=== PATIENT | female | born 1985 | race Caucasian/White ===

== ENCOUNTER 2018-08-06 09:49 | Inpatient (IN) | payer BC ==
--- NOTE | 2018-08-06 09:01 | PDOC.LDHP ---
Labor and Delivery H&P Chief complaint: scheduled section Current gestational age (weeks): 39 Due date: 08/13/18 Dating criteria: last menstrual period ( with first timester sono agreement.) Grav: 2 Para: 1 Current complications: other (PUPPPS--biopsy confirmed. 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) Abnormal US findings: No Current medications: pre- vitamins, iron Previous surgical history: low tranverse CS Allergies/Adverse Reactions: Allergies Allergy/AdvReac Type Severity Reaction Status Date / Time No Known Allergies Allergy Unverified 03/31/16 21:11 Social history: none - Physical Exam General: NAD, resting Heart: RRR Lungs: nonlabored breathing Abdomen: gravid FHT: category 1 - OB Labs Blood type: A RH: negative Antibody Screen: negative HIV: negative RPR: negative HEPSAg: negative 1 hour GCT: negative GBS: positive Urine drug screen: not done Rubella: immune - Assessment L&D Assessment: scheduled repeat section - Plan Plan: admit to L&D, to OR for section, anesthesia consult for pain management
[~2018-08-06 09:49] MED LIST: Bicitra 30 ML UDCUP PO SCH; CEFAZOLIN/Water 2 GM/20 ML SYRINGE SLOW IVP SCH; Ondansetron PF 4 MG/2 ML Vial IVP PRN; Promethazine HCl 25 MG/ML VIAL IM PRN
[2018-08-06] MEDS ORDERED: CEFAZOLIN 2 GM in Premix Bag 1 BAG IVPB SCH (10:00)
[2018-08-06] MEDS ORDERED: Meperidine HCl/PF 25 MG/ML VIAL SLOW IVP PRN (10:12)
[2018-08-06] MEDS ORDERED: diphenhydrAMINE 50 MG/ML VIAL IVP PRN (10:12)
[2018-08-06] MEDS ORDERED: Promethazine HCl 25 MG/ML VIAL IM PRN ×2 (10:12→12:50)
[2018-08-06] MEDS ORDERED: HYDROmorphone 2 MG/ML VIAL SLOW IVP PRN (10:12)
[2018-08-06] MEDS ORDERED: Naloxone HCl 0.4 mg/ml Vial IVP PRN ×2 (10:12)
[2018-08-06] MEDS ORDERED: Ondansetron HCl/PF 4 MG/2 ML Vial IVP PRN (10:12)
[2018-08-06] MEDS ORDERED: Promethazine HCl 25 MG SUPP PR PRN (10:12)
[2018-08-06] MEDS ORDERED: Naloxone HCl 0.4 mg/ml Vial IV PRN (10:12)
[2018-08-06] MEDS ORDERED: L&D-Morphine 4 MG/ML VIAL SLOW IVP PRN (10:12)
[2018-08-06] MEDS ORDERED: Eucerin (Mineral Oil/Petrolatum,White) 30 gm Jar TOP PRN (10:12)
[2018-08-06] MEDS ORDERED: Communication Order-Pharmacy FS SCH (10:15)
[2018-08-06] MEDS ORDERED: Ketorolac Tromethamine 30 MG/ML VIAL IVP SCH (10:15)
[2018-08-06] MEDS: Lactated Ringer's 1,000 ML IV SCH ×3 (10:34→16:41)
[2018-08-06 10:44] VITALS: BMI 25.1
[2018-08-06 10:56] LABS: Hemoglobin 10.5 g/dL (12.0-16.0); Mean Corpuscular Hemoglobin 24.5 pg (27.0-31.0); Mean Corpuscular Volume 76.6 fL (78.0-98.0); Mean Platelet Volume 8.3 fL (7.4-10.4); Platelet Count 287 thou/uL (130-400); RBC Distribution Width 17.6 % (11.5-14.5); Red Blood Cell (RBC) Count 4.28 mill/uL (4.20-5.40); White Blood Cell (WBC) Count 6.9 thou/uL (4.8-10.8)
[2018-08-06] MEDS ORDERED: ePHEDrine/0.9% NaCl/PF SYRINGE 50 mg/10 ml ONE (11:42)
[2018-08-06] MEDS ORDERED: MORPHINE 5 MG/10 ML PF VIAL ONE (11:43)
[2018-08-06] MEDS ORDERED: Ondansetron PF 4 MG/2 ML Vial ONE ×2 (11:44→13:16)
[2018-08-06] MEDS ORDERED: Glycopyrrolate 0.2 MG/ML 5 ML SYRINGE ONE ×2 (11:45→13:16)
[2018-08-06 11:50] LABS: Syphilis Antibody Nonreactive (Nonreactive); Syphilis Antibody Index 0.05 S/CO (<1.00 Non-Reactive)
[2018-08-06 11:51] LABS: HBSAg Index 0.26 S/CO (0-0.99); Hep B Surf Ag Non-Reactive S/CO (NonReactive)
[2018-08-06] MEDS ORDERED: Oxytocin 10 UNITS/ML VIAL ONE (12:07)
[2018-08-06] MEDS ORDERED: Lanolin Ointment 7 GM TUBE TOP PRN (12:50)
[2018-08-06] MEDS ORDERED: Bisacodyl 10 MG SUPP PR PRN (12:50)
[2018-08-06] MEDS ORDERED: Ondansetron PF 4 MG/2 ML Vial IVP PRN (12:50)
[2018-08-06] MEDS ORDERED: diphenhydrAMINE 25 MG CAP PO PRN (12:50)
--- NOTE | 2018-08-06 12:53 | PDOC.OPDEL ---
OB Operative/Delivery Note Delivery Dr/Surgeon: Bianca Assist: MONICA Stern Pre-Delivery Diagnosis: scheduled section Procedure/Post Delivery Dx: repeat low transverse CS Weeks gestation: 39 Anesthesia: spinal - Findings A Sex: male Weight: 6 lb 12 oz - 1 min: 9 - 5 min: 9 - Additional Findings/Plan Placenta delivered: manual removal findings: low transverse hysterotomy without extension Estimated blood loss: 500ml Compilations/Other Findings: none Post delivery plan: routine recovery
[2018-08-06] MEDS ORDERED: NS / Oxytocin 40 units/1000ml 1,000 ML IV SCH (13:00)
[2018-08-06] MEDS ORDERED: ePHEDrine 50 MG/ML VIAL ONE (13:16)
[2018-08-06] MEDS: Ketorolac Tromethamine 30 MG/ML VIAL IVP PRN ×2 (16:41→22:36)
[2018-08-06] MEDS: Ondansetron PF 4 MG/2 ML Vial IVP PRN ×2 (16:41→22:36)
--- NOTE | 2018-08-06 18:46 | OP ---
DATE OF PROCEDURE: 08/06/2018 PREOPERATIVE DIAGNOSIS: A 33-year-old white female, G2, P1, at 39 weeks with prior section, for repeat. POSTOPERATIVE DIAGNOSIS: A 33-year-old white female, G2, P1, at 39 weeks with prior section, for repeat. PROCEDURE PERFORMED: Repeat low-transverse section without extension. [employer]SULTANT SURGEON: Yelena Stern PA-C ANESTHESIA: Spinal. ESTIMATED BLOOD LOSS: 500 mL. COMPLICATIONS: None. ANTIBIOTIC: 2 g Ancef, on-call to OR. FINDINGS: 1. Vigorous male infant, Apgars 9 and 9. weight 6 pounds 12 ounces. Clear amniotic fluid noted. Vertex presentation. 2. Normal-appearing fallopian tubes, uterus, and ovaries. 3. Clear urine present in King catheter postprocedure. DISPOSITION: Recovery room, stable. DESCRIPTION OF PROCEDURE: The patient previously received informed consent in regard to surgery. She was taken back to the operating room, where she received a spinal block without complications. She was placed in supine position and prepped and draped in usual sterile fashion. King catheter and SCDs had been placed. A Pfannenstiel incision was made through the previous scar site, carried down the fascia. Fascia was nicked in the midline. The fascial incision was extended bilaterally with curved Montero scissors. The rectus fascia was then dissected sharply and bluntly off the rectus muscle bellies, and the rectus muscle bellies were divided in midline. Peritoneal cavity was entered. Peritoneal incision was extended, and a bladder blade was placed. A bladder flap was created in usual fashion. A 2 cm hysterotomy incision superiorly to the bladder was made, and this was extended via finger fractionation. The baby's amniotic bag was ruptured with clear fluid noted, and the baby was delivered in vertex presentation. The mouth and nares of the were bulb suctioned on the abdomen. Cord was doubly clamped and cut. Cord blood was obtained in usual fashion. Baby was handed off to the pediatric team in attendance. The placenta was then extracted manually. Uterus was then externalized. The uterus was curetted of any remaining placental fragments with a dry laparotomy sponge. Hysterotomy incision was inspected and no extensions were noted. The hysterotomy incision was then closed with #1 Monocryl in running locking fashion with good hemostasis confirmation. The uterus was then returned into the abdomen. The pelvis was irrigated and suctioned again. Hemostasis along the hysterotomy site was confirmed. The rectus muscle bellies were then examined and noted to be hemostatic prior to fascial closure. The fascia was closed then with 0 PDS suture in running continuous fashion x2. Subcutaneous tissue was irrigated, noted to be hemostatic prior to skin approximation with javier. Surgery was terminated. No anesthetic or surgical complications occurred. Job ID: [id number]
[2018-08-06] MEDS ORDERED: HYDROcodone/Acetaminophen 5/325 mg Tablet PO PRN ×2 (22:15)
[2018-08-07] MEDS: Docusate Calcium (SURFAK) 240 MG CAP PO SCH ×3 (01:53→20:37)
[2018-08-07] MEDS: Ferrous Sulfate 325 MG TAB PO SCH ×3 (01:54→20:35)
[2018-08-07] MEDS ORDERED: Sodium Chloride 0.9% 10 ML ONE (04:50)
[2018-08-07] MEDS: Ketorolac Tromethamine 30 MG/ML VIAL IVP PRN (04:59)
[2018-08-07 07:18] LABS: Hemoglobin 8.5 g/dL (12.0-16.0); Mean Corpuscular HGB CONC 30.6 g/dL (32.0-36.0); Mean Corpuscular Hemoglobin 23.8 pg (27.0-31.0); Mean Corpuscular Volume 77.8 fL (78.0-98.0); Mean Platelet Volume 7.9 fL (7.4-10.4); Platelet Count 206 thou/uL (130-400); RBC Distribution Width 17.3 % (11.5-14.5); Red Blood Cell (RBC) Count 3.58 mill/uL (4.20-5.40)
[2018-08-07] MEDS: Prenatal Vitamin 1 TAB PO SCH (08:38)
[2018-08-07] MEDS ORDERED: Adacel (T-DAP) 0.5 ML SYRINGE IM ONE (09:00)
[2018-08-07] MEDS: Lactated Ringer's 1,000 ML IV SCH ×2 (10:03→17:30)
[2018-08-07] MEDS: Ibuprofen 800 MG TAB PO SCH ×2 (11:30→19:06)
[2018-08-07] MEDS ORDERED: Acetaminophen/Codeine 30-300mg Tablet PO PRN (12:18)
--- NOTE | 2018-08-07 12:24 | PDOC.PP ---
Post Progress Note Post Day #: 1 PO intake tolerated: yes Flatus: yes Ambulation: yes Vital Signs (12 hours) Temp Pulse Resp BP Pulse Ox 08/07/18 12:10 97.6 F 89 20 100/56 L 08/07/18 08:15 98.1 F 81 20 101/61 96 08/07/18 05:00 98.3 F 67 16 92/53 L 08/07/18 00:45 98.4 F 74 16 91/57 L Weight Weight 151 lb - Physical Examination Abdominal: + bowel sounds, lochia, no distention, appropriately TTP Skin: CS incision dry & intact, no rash Result Diagrams: 08/07/18 06:46 Additional Labs: Post Labs Blood Type O NEGATIVE 08/06/18 10:38 Hep Bs Antigen Non-Reactive S/CO (NonReactive) 08/06/18 10:38 - Assessment/Plan post op day 1-doing well. Change to Tylenol #3 for pain.
[2018-08-07] MEDS: Acetaminophen/Codeine 30-300mg Tablet PO PRN ×2 (14:41→20:35)
[2018-08-08] MEDS: Lactated Ringer's 1,000 ML IV SCH ×3 (01:15→18:26)
[2018-08-08] MEDS: Acetaminophen/Codeine 30-300mg Tablet PO PRN (01:24)
[2018-08-08] MEDS: Ibuprofen 800 MG TAB PO SCH ×3 (05:56→22:14)
[2018-08-08] MEDS: Prenatal Vitamin 1 TAB PO SCH (09:46)
[2018-08-08] MEDS: traMADol HCl 50 MG TAB PO PRN ×3 (09:46→22:21)
[2018-08-08] MEDS: Simethicone Chewable 80 MG TAB PO PRN ×2 (09:46→22:14)
[2018-08-08] MEDS: Docusate Calcium (SURFAK) 240 MG CAP PO SCH ×2 (09:49→22:14)
[2018-08-08] MEDS: Ferrous Sulfate 325 MG TAB PO SCH ×2 (09:49→22:15)
[2018-08-09] MEDS: Lactated Ringer's 1,000 ML IV SCH ×2 (04:56→09:52)
[2018-08-09] MEDS: Ibuprofen 800 MG TAB PO SCH ×2 (04:59→13:15)
[2018-08-09] MEDS: traMADol HCl 50 MG TAB PO PRN ×2 (05:01→12:24)
[2018-08-09] MEDS: Simethicone Chewable 80 MG TAB PO PRN ×2 (05:06→13:16)
--- NOTE | 2018-08-09 05:55 | PDOC.PP ---
Post Progress Note Post Day #: POD#3 Subjective: Resting, no c/o. PO intake tolerated: yes Flatus: yes Ambulation: yes Vital Signs (12 hours) Temp Pulse Resp BP Pulse Ox 08/08/18 20:05 97.7 F 78 16 121/78 99 Weight Weight 68.492 kg - Physical Examination General: NAD Respiratory: non-labored breathing Skin: CS incision dry & intact Psychiatric: normal affect Result Diagrams: 08/07/18 06:46 Additional Labs: Post Labs Blood Type O NEGATIVE 08/06/18 10:38 Hep Bs Antigen Non-Reactive S/CO (NonReactive) 08/06/18 10:38 - Assessment/Plan Doing well. DC home with precautions. F/u with Dr. Valenzuela in 1 week for staple removal.
[2018-08-09 08:50] VITALS: BP 123/84; TEMP 97.8
[2018-08-09] MEDS: Prenatal Vitamin 1 TAB PO SCH (09:18)
[2018-08-09] MEDS: Docusate Calcium (SURFAK) 240 MG CAP PO SCH (09:53)
[2018-08-09] MEDS: Ferrous Sulfate 325 MG TAB PO SCH (09:54)
== END 2018-08-09 15:35 | disposition home or self-care (01) | DRG 788 ==
LOC: L&D 09:49 → 3SW 15:44
PROVIDERS: ADMIT Obstetrics & Gynecology; ATTEND Obstetrics & Gynecology
PROC: 10D00Z1 Extraction of Products of Conception, Low, Open Approach (ICD-10-PCS; principal; 2018-08-06)
DX: O34.211 Maternal care for low transverse scar from previous cesarean delivery (principal); O99.02 Anemia complicating childbirth; D50.9 Iron deficiency anemia, unspecified; O99.824 Streptococcus B carrier state complicating childbirth; Z3A.39 39 weeks gestation of pregnancy; Z37.0 Single live birth
CPT/HCPCS: 36415; 51702; 85027; 86780; 86850; 86900; 86901; 87340; J1885; J2270; J2405; J2590; J3490

== ENCOUNTER 2019-08-24 09:03 | Outpatient (CLI) | payer BC ==
--- NOTE | 2019-08-24 12:52 | NM ---
EXAM: Nuclear medicine hepatobiliary scan: HISTORY: Epigastric pain COMPARISON: None. RADIOPHARMACEUTICAL: 5.2 mCi technetium 99m labeled mebrofenin intravenously. FINDINGS: There is normal opacification of the liver with excretion into the gallbladder and into the small bow el by 60 minutes. Following administration of: 8 ounces of ensure orally, gallbladder ejection fraction [id number]%. IMPRESSION: Unremarkable nuclear medicine hepatic biliary scan. Normal ejection fraction.
== END 2019-08-24 09:04 | disposition home or self-care (01) ==
LOC: NM 09:03
PROVIDERS: ATTEND Internal Medicine Gastroenterology
DX: R10.13 Epigastric pain (principal)
CPT/HCPCS: 78227; A9537

== ENCOUNTER 2023-03-01 10:12 | Outpatient (CLI) | payer BC ==
[2023-03-01] MEDS ORDERED: Iopamidol 370 76% 100 ML VIAL ONE (12:44)
== END 2023-03-01 10:13 | disposition home or self-care (01) ==
LOC: CT 10:12
PROVIDERS: ATTEND Internal Medicine Gastroenterology
DX: K30 Functional dyspepsia (principal); D50.9 Iron deficiency anemia, unspecified; R10.11 Right upper quadrant pain; R11.0 Nausea; R63.4 Abnormal weight loss; N20.0 Calculus of kidney
CPT/HCPCS: 74178; Q9967